=== PATIENT | male | born 1990 | race Caucasian/White ===

== ENCOUNTER 2021-12-02 11:19 | Emergency (ER) | payer SELFPAY | END 2021-12-02 13:37 | disposition home or self-care (01) | LOC: ER1 11:19 | DX: M54.41 Lumbago with sciatica, right side (principal); M54.42 Lumbago with sciatica, left side; G89.29 Other chronic pain; M25.511 Pain in right shoulder; M25.512 Pain in left shoulder; F17.210 Nicotine dependence, cigarettes, uncomplicated | CPT/HCPCS: 72100; 73030; 93005; 99283 ==

== ENCOUNTER 2022-01-01 12:39 | Emergency (ER) | payer OTHER ==
[2022-01-01] MEDS ORDERED: CYCLOBENZAPRINE5 MG PO (16:06)
[2022-01-01] MEDS ORDERED: NAPROSYN500 MG PO (16:06)
== END 2022-01-01 16:40 | disposition home or self-care (01) ==
LOC: ER1 12:39
DX: S39.012A Strain of muscle, fascia and tendon of lower back, initial encounter (principal); M54.42 Lumbago with sciatica, left side; F17.200 Nicotine dependence, unspecified, uncomplicated; X50.9XXA Other and unspecified overexertion or strenuous movements or postures, initial encounter; Y92.89 Other specified places as the place of occurrence of the external cause; Y99.0 Civilian activity done for income or pay
CPT/HCPCS: 96372; 99283; J1100; J1885